=== PATIENT | female | born 1995 | race Caucasian/White ===

== ENCOUNTER 2017-11-07 19:07 | Emergency (ER) | payer MEDICAID, OTHER ==
[~2017-11-07] VITALS: Ht 160 cm; Wt 81.2 kg
[2017-11-07 19:10] VITALS: BP 112/58
--- NOTE | 2017-11-07 19:18 | PHYS DOC ---
Past History Past Medical History: Asthma, GERD, Migraines Past Surgical History: No Surgical History Smoking: Cigarettes Alcohol Use: Occasionally Drug Use: None Adult General HPI HPI Patient is a 21 year old female who presents with sore throat. She states she woke up this morning with a sore throat. She felt hot. No temperature was taken. Has a headache. No earache. No cough. No rash. She was exposed to strep in her home (POS swab 2 days ago). She is with an EDC of June 14, 2018. G2P 0 SAB 1. No vaginal bleeding or leak of fluid. Review of Systems Review of Systems Constitutional: Subjective fever POS chills Eyes: Denies change in visual acuity, redness, or eye pain HENT: Denies nasal congestion, POS sore throat Respiratory: Denies cough or shortness of breath Cardiovascular: No chest pain GI: Denies abdominal pain, POS nausea with , Occasional vomiting, bloody stools or diarrhea : Denies dysuria or hematuria Musculoskeletal: Denies back pain or joint pain Integument: Denies rash or skin lesions Neurologic: POS headache, Denies focal weakness or sensory changes All other systems were reviewed and found to be within normal limits, except as documented in this note. Allergies Allergies Allergies Coded Allergies Type Severity Reaction Last Updated Verified Iodinated Contrast Media - IV Dye Allergy Severe THROAT SWELLING, RASH Yes coconut Allergy Severe THROAT SWELLING, RASH 08/09/16 Yes shellfish derived Allergy Severe THROAT SWELLING. RASH 08/09/16 Yes Physical Exam Physical Exam Constitutional: Well developed, well nourished, no acute distress, non-toxic appearance. HENT: Normocephalic, atraumatic, tympanic membranes are clear bilaterally, bilateral external ears normal, oropharynx moist, pharynx with erythema, exudates noted on the tonsils, no oral sores, nose normal. Eyes: PERRLA, EOMI, conjunctiva normal, no discharge. Neck: Normal range of motion, no tenderness, supple, no stridor. No meningismus. Cardiovascular:Heart rate regular rhythm, no murmur Lungs & Thorax: Bilateral breath sounds clear to auscultation Abdomen: Bowel sounds normal, soft, no tenderness, no masses, no pulsatile masses. Skin: Warm, dry, no erythema, no rash. Back: No tenderness, no CVA tenderness. Extremities: No tenderness, no cyanosis, no clubbing, ROM intact, no edema. Neurologic: Alert and oriented X 3, normal motor function, normal sensory function, no focal deficits noted. Psychologic: Affect normal, judgement normal, mood normal. Current Patient Data Vital Signs Vital Signs Date Time Temp Pulse Resp B/P (MAP) Pulse Ox O2 Delivery O2 Flow Rate FiO2 11/07/17 19:10 98.8 71 20 98 Room Air BP 127/81 Lab Results Laboratory Tests Test 11/07/17 19:12 Influenza Type A (Rapid) Negative (NEGATIVE) Influenza Type B (Rapid) Negative (NEGATIVE) Rapid strep negative (culture pending) Course & Med Decision Making Course & Med Decision Making Evaluated patient. Strep and influenza sent (high risk as she is ). Influenza and rapid strep are negative but patient has exudative pharyngitis and known exposure. Will treat and placed on Amoxicillin. She states she has some allergy "to an antibiotic that is on your record here" but there is not one listed. Informed her that she needs to ask at the pharmacy where she normally fills her prescriptions to verify and they can call if there is a conflict. I have spoken with the patient and/or caregivers. I have explained the patient' s condition, diagnosis and treatment plan based on the information available to me at this time. I have answered the patient's and/or caregiver's questions and addressed any concerns. The patient and/or caregivers have as good an understanding of the patient's diagnosis, condition and treatment plan as can be expected at this point. The patient's condition is stable and appropriate for discharge from the emergency department. The patient will pursue further outpatient evaluation with the primary care physician or other designated or consulting physician as outlined in the discharge instructions. The patient and/or caregivers are agreeable to this plan of care and follow-up instructions have been explained in detail. The patient and/or caregivers have received these instructions in written format and have expressed an understanding of the discharge instructions. The patient and/or caregivers are aware that any significant change in condition or worsening of symptoms should prompt an immediate return to this or the closest emergency department or a call to 911. Hailee Disclaimer Hailee Disclaimer This electronic medical record was generated, in whole or in part, using a voice recognition dictation system. Departure Departure: Impression: Primary Impression: Pharyngitis Additional Impression: Disposition: 01 HOME, SELF-CARE Condition: STABLE Referrals: PCP,NO (PCP) Patient Instructions: Viral and Bacterial Pharyngitis Additional Instructions: YOUR INFLUENZA WAS NEGATIVE HERE. YOUR RAPID STREP SCREEN WAS NEGATIVE BUT A CULTURE IS PENDING. BECAUSE OF YOUR KNOWN EXPOSURE WILL PLACE YOU ON AMOXICILLIN. YOU STATE YOU HAVE AN UNKNOWN ANTIBIOTIC ALLERGY BUT WE HAVE NO RECORD OF ONE NOTED HERE. PLEASE BRING THE PRESCRIPTION INTO YOUR USUAL PHARMACY AND THEY CAN VERIFY. IF THERE IS A CONFLICT THEY CAN CALL AND WE WILL CHANGE IT. Scripts Promethazine HCl (Phenergan) 12.5 Mg Supp.rect 12.5 MG RC Q6-8HRS Y for NAUSEA, #10 SUPP.RECT Prov: YOSVANY ENGLISH MD 11/07/17 Amoxicillin (AMOXICILLIN) 500 Mg Capsule 1 CAP PO TID, #30 CAP Prov: YOSVANY ENGLISH MD 11/07/17 Problem Qualifiers Primary Impression: Pharyngitis Pharyngitis/tonsillitis etiology: unspecified etiology Qualified Codes: J02.9 - Acute pharyngitis, unspecified Additional Impression: Weeks of gestation: 8 weeks Qualified Codes: Z3A.08 - 8 weeks gestation of YOSVANY ENGLISH MD Nov 07, 2017 19:17
[2017-11-07 19:46] LABS: INFLUENZA A PATIENT NEGATIVE (NEGATIVE); INFLUENZA B PATIENT NEGATIVE (NEGATIVE)
[2017-11-07] MEDS ORDERED: PROM12.553 RC (20:00)
[2017-11-07] MEDS ORDERED: AMOX500C PO (20:00)
[2017-11-07] MEDS ORDERED: ACETAMINOPHEN 325 MG TABLET PO ONE ×2 (20:08→20:15)
== END 2017-11-07 20:09 | disposition home or self-care (01) ==
LOC: ER 19:07
DX: O99.511 Diseases of the respiratory system complicating pregnancy, first trimester (principal); J02.9 Acute pharyngitis, unspecified; O99.611 Diseases of the digestive system complicating pregnancy, first trimester; K21.9 Gastro-esophageal reflux disease without esophagitis; J45.909 Unspecified asthma, uncomplicated; G43.909 Migraine, unspecified, not intractable, without status migrainosus; O99.331 Smoking (tobacco) complicating pregnancy, first trimester; Z3A.08 8 weeks gestation of pregnancy; Z91.041 Radiographic dye allergy status; Z91.013 Allergy to seafood; Z91.048 Other nonmedicinal substance allergy status
CPT/HCPCS: 87070; 87804; 87880; 99284

== ENCOUNTER → 2021-10-14 | Outpatient (CLI) | payer MEDICAID ==
[~2021-10-14] MED LIST: AMOX500C PO; PROM12.553 RC
== END ==
LOC: LAB 14:11
PROVIDERS: ATTEND Nurse Practitioner Family
DX: L65.9 Nonscarring hair loss, unspecified (principal)
CPT/HCPCS: 84443

== ENCOUNTER → 2021-10-28 | Outpatient (CLI) | payer MEDICAID ==
[2021-10-28 15:42] LABS: BASO % 1 % (0-3); EOS # 0.2 x10^3/uL (0.0-0.7); EOS % 3 % (0-3); HEMATOCRIT 40.2 % (36.0-47.0); HEMOGLOBIN 13.4 g/dL (12.0-15.5); LYMPH # 1.9 x10^3/uL (1.0-4.8); LYMPH % 31 % (24-48); MEAN CORPUSCULAR HEMOGLOBIN 29 pg (25-35); MEAN CORPUSCULAR HGB CONC 33 g/dL (31-37); MEAN CORPUSCULAR VOLUME 87 fL (79-100); MONO # 0.4 x10^3/uL (0.0-1.1); MONO % 6 % (0-9); NEUT # 3.6 x10^3uL (1.8-7.7); NEUT % 59 % (31-73); PLATELET COUNT 242 x10^3/uL (140-400); RED BLOOD COUNT 4.63 x10^6/uL (3.50-5.40); RED CELL DISTRIBUTION WIDTH 14.2 % (11.5-14.5); WHITE BLOOD COUNT 6.2 x10^3/uL (4.0-11.0)
[2021-10-28 15:57] LABS: ALBUMIN 4.1 g/dL (3.4-5.0); ALBUMIN/GLOBULIN RATIO 1.3 (1.0-1.7); CALCIUM 8.9 mg/dL (8.5-10.1); CREATININE 0.7 mg/dL (0.6-1.0); GFR 101.1; POTASSIUM 3.8 mmol/L (3.5-5.1); TOTAL BILIRUBIN 0.3 mg/dL (0.2-1.0); TOTAL PROTEIN 7.2 g/dL (6.4-8.2)
== END ==
LOC: LAB 15:08
PROVIDERS: ATTEND Nurse Practitioner Family
DX: L65.9 Nonscarring hair loss, unspecified (principal)
CPT/HCPCS: 36415; 80053; 82306; 82607; 82672; 82728; 82746; 83540; 83550; 85025

== ENCOUNTER 2021-11-21 22:04 | Emergency (ER) | payer MEDICAID ==
[~2021-11-21] VITALS: Ht 160 cm; Wt 72.0 kg
--- NOTE | 2021-11-21 22:45 | PHYS DOC ---
Past History Past Medical History: Asthma, GERD, Migraines Past Surgical History: No Surgical History Smoking: Cigarettes Alcohol Use: None Drug Use: None Adult General HPI HPI Patient is a 26-year-old female who presents with a chief complaint of fatigue, body aches and feels like she is getting out of breath when she is up moving around. Patient was diagnosed with Covid and influenza several days ago, as was the rest of her household. States that she is actually feeling better than she was, with symptoms of fatigue and body aches in the getting out of breath still remaining but getting slightly better. States she is not exactly sure what medicines to take at home and has not taken anything today. Denies fevers, ch est pain, wheeze, abdominal pain, nausea, vomiting, diarrhea. States she is eating and drinking normally for her. States he is making urine and stool normally for her. Review of Systems Review of Systems Review of systems otherwise unremarkable except noted in HPI Allergies Allergies Allergies Coded Allergies Type Severity Reaction Last Updated Verified Iodinated Contrast Media Allergy Severe THROAT SWELLING, RASH 08/09/16 Yes coconut Allergy Severe THROAT SWELLING, RASH 08/09/16 Yes shellfish derived Allergy Severe THROAT SWELLING. RASH 08/09/16 Yes Physical Exam Physical Exam Constitutional: Well developed, well nourished, no acute distress, non-toxic appearance. [] HENT: Normocephalic, atraumatic, bilateral external ears normal, oropharynx moist, no oral exudates, nose normal. [] Eyes: , conjunctiva normal, no discharge. [] Neck: Normal range of motion, no tenderness, supple, no stridor. [] Cardiovascular:Heart rate regular rhythm, no murmur [] Lungs & Thorax: Bilateral breath sounds clear to auscultation [] Abdomen: soft, no tenderness, no masses, no pulsatile masses. [] Skin: Warm, dry, no erythema, no rash. [] Back: No tenderness, no CVA tenderness. [] Extremities: No tenderness, no cyanosis, no clubbing, ROM intact, no edema. [] Neurologic: Alert and oriented X 3, normal motor function, normal sensory function, no focal deficits noted. [] Psychologic: Affect normal, judgement normal, mood normal. [] EKG EKG [] Radiology/Procedures Radiology/Procedures [] Heart Score C/O Chest Pain: No Risk Factors: Risk Factors: DM, Current or recent (<one month) smoker, HTN, HLP, family history of CAD, obesity. Risk Scores: Risk Factors: DM, Current or recent (<one month) smoker, HTN, HLP, family history of CAD, obesity. Course & Med Decision Making Course & Med Decision Making Patient is a 26-year-old female with Covid and flu who presents with uncontrolled symptoms Vital signs not concerning. Physical exam noted above. Patient here mostly for reassurance and recommendations on symptom management at home. Given pain and antitussives here in the emergency department. Discussed symptom management at home. Advised on diet and hydration. Advised to follow-up with primary care physician in the morning to update on ED visit. Gave strict return precautions to the ED. Patient grateful, verbalized understanding and agree with plan of discharge. [] Dragon Disclaimer Dragon Disclaimer This electronic medical record was generated, in whole or in part, using a voice recognition dictation system. Departure Departure: Impression: Primary Impression: Lab test positive for detection of COVID-19 virus Additional Impression: Influenza Disposition: 01 HOME / SELF CARE / HOMELESS Condition: GOOD Referrals: [facility] (PCP) HORTENSIA PEREZ Patient Instructions: Viral Syndrome Additional Instructions: Thank you for coming into the emergency department tonight and allowing us to take care of you. Please read the attached information carefully to go over things we discussed. Please begin taking 1000 mg of Tylenol every 8 hours, 800 mg of ibuprofen every 8 hours and 50 mg of Benadryl every 6 hours. You were given ibuprofen here in the emergency department and a couple Tylenol with codeine to take home with you. If you are taking your Tylenol with codeine please do not add any additional Tylenol. Please do not exceed 3000 mg of Tylenol daily. Please be sure to drink plenty of fluids, stay hydrated, take a multivitamin daily and eat 2-3 nutritious meals daily. Please call your primary care physician in the morning to update on your ED visit and set up a follow- up. Please come back with new or concerning symptoms as discussed. Problem Qualifiers USMAN RUELAS MD Nov 21, 2021 22:45
[2021-11-21] MEDS ORDERED: ACETAMINOPHEN/CODEINE 300/30MG 4TABLET STARTPACK. PO ONE (23:00)
[2021-11-21] MEDS ORDERED: diphenhydrAMINE HCL 25 MG CAPSULE PO ONE (23:00)
[2021-11-21] MEDS ORDERED: IBUPROFEN 800 MG TABLET. PO ONE (23:00)
[2021-11-21] MEDS ORDERED: ALBUTEROL SULFATE 8GM INHALER. INH ONE (23:00)
[2021-11-22 00:32] VITALS: BP 114/82
== END 2021-11-21 23:30 | disposition home or self-care (01) ==
LOC: ER 22:04
DX: U07.1 COVID-19 (principal); J11.1 Influenza due to unidentified influenza virus with other respiratory manifestations; J45.909 Unspecified asthma, uncomplicated; K21.9 Gastro-esophageal reflux disease without esophagitis; G43.909 Migraine, unspecified, not intractable, without status migrainosus; F17.210 Nicotine dependence, cigarettes, uncomplicated; Z91.041 Radiographic dye allergy status; Z91.018 Allergy to other foods; Z91.013 Allergy to seafood
CPT/HCPCS: 94640; 99283; 94664

== ENCOUNTER → 2022-01-21 | Outpatient (CLI) | payer MEDICAID ==
[2021-11-22 00:32] VITALS: BP 114/82
[2022-01-21 15:49] LABS: BASO % 1 % (0-3); EOS # 0.2 x10^3/uL (0.0-0.7); EOS % 3 % (0-3); HEMATOCRIT 38.9 % (36.0-47.0); HEMOGLOBIN 13.2 g/dL (12.0-15.5); LYMPH # 2.1 x10^3/uL (1.0-4.8); LYMPH % 27 % (24-48); MEAN CORPUSCULAR HEMOGLOBIN 31 pg (25-35); MEAN CORPUSCULAR HGB CONC 34 g/dL (31-37); MEAN CORPUSCULAR VOLUME 90 fL (79-100); MONO # 0.4 x10^3/uL (0.0-1.1); MONO % 6 % (0-9); NEUT % 64 % (31-73); PLATELET COUNT 296 x10^3/uL (140-400); RED BLOOD COUNT 4.34 x10^6/uL (3.50-5.40); RED CELL DISTRIBUTION WIDTH 13.1 % (11.5-14.5); WHITE BLOOD COUNT 7.8 x10^3/uL (4.0-11.0)
[2022-01-21 16:08] LABS: ALBUMIN 3.9 g/dL (3.4-5.0); ALBUMIN/GLOBULIN RATIO 1.1 (1.0-1.7); CALCIUM 8.9 mg/dL (8.5-10.1); CREATININE 0.6 mg/dL (0.6-1.0); GFR 119.9; POTASSIUM 3.8 mmol/L (3.5-5.1); TOTAL BILIRUBIN 0.3 mg/dL (0.2-1.0); TOTAL PROTEIN 7.5 g/dL (6.4-8.2)
[2022-01-22 17:06] LABS: FREE T4 0.91 ng/dL (0.76-1.46); THYROID STIM HORMONE (TSH) 2.042 uIU/mL (0.358-3.740)
== END ==
LOC: LAB 14:22
PROVIDERS: ATTEND Nurse Practitioner Family
DX: R63.4 Abnormal weight loss (principal)
CPT/HCPCS: 36415; 80053; 84439; 84443; 85025